=== PATIENT | female | born 2000 | race African-American/Black ===

== ENCOUNTER 2020-07-20 19:38 | Emergency (ER) | payer SELFPAY ==
[~2020-07-20] VITALS: Ht 172.7 cm; Wt 75.7 kg
[2020-07-20] MEDS ORDERED: diphenhydrAMINE 50 MG/ML VIAL IVP ONE (20:00)
--- NOTE | 2020-07-20 20:19 | PHYS DOC ---
General Adult EDM: Chief Complaint: SEIZURE HPI: HPI: Patient is a 20 year old female past medical history of seizures presents for evaluation after an apparent seizure. Patient states she has seizures monthly. States she had a seizure yesterday and since then has had tardive dyskinesia. Patient is alert and oriented x4. She is able to answer all my questions appropriately. She moves all extremities away actively and passively she has no focal weakness. Patient tongue is protruding she does have some slurred speech. She is in no respiratory distress she is able to handle her oral secretions. Patient states she has had tardive dyskinesia in the past related to seizures and states it usually resolves with Benadryl. Patient states she has not taken Benadryl since onset of her tardive dyskinesia. Review of Systems: Review of Systems: Constitutional: Denies fever or chills. [] Eyes: Denies change in visual acuity. [] HENT: Denies nasal congestion or sore throat. [] Respiratory: Denies cough or shortness of breath. [] Cardiovascular: Denies chest pain or edema. [] GI: Denies abdominal pain, nausea, vomiting, bloody stools or diarrhea. [] : Denies dysuria. [] Musculoskeletal: Denies back pain or joint pain. [] Integument: Denies rash. [] Neurologic: Denies headache, focal weakness or sensory changes. [Tongue jutting out and lip smacking] Endocrine: Denies polyuria or polydipsia. [] Lymphatic: Denies swollen glands. [] Psychiatric: Denies depression or anxiety. [] Heart Score: Risk Factors: Risk Factors: DM, Current or recent (<one month) smoker, HTN, HLP, family history of CAD, obesity. Risk Scores: Score 0 - 3: 2.5% MACE over next 6 weeks - Discharge Home Score 4 - 6: 20.3% MACE over next 6 weeks - Admit for Clinical Observation Score 7 - 10: 72.7% MACE over next 6 weeks - Early Invasive Strategies Current Medications: Current Medications Medications (Trade) Dose Ordered Sig/Julita Start Time Stop Time Status Last Admin Dose Admin Diphenhydramine HCl (Benadryl) 50 mg 1X ONCE 07/20/20 20:00 07/20/20 20:01 UNV Physical Exam: PE: Constitutional: Well developed, well nourished, no acute distress, non-toxic appearance. [] HENT: Normocephalic, atraumatic, bilateral external ears normal, oropharynx moist, no oral exudates, nose normal. [] Eyes: PERRLA, EOMI, conjunctiva normal, no discharge. [] Neck: Normal range of motion, no tenderness, supple, no stridor. [] Cardiovascular:Heart rate regular rhythm, no murmur [] Lungs & Thorax: Bilateral breath sounds clear to auscultation [] Abdomen: Bowel sounds normal, soft, no tenderness, no masses, no pulsatile masses. [] Skin: Warm, dry, no erythema, no rash. [] Back: No tenderness, no CVA tenderness. [] Extremities: No tenderness, no cyanosis, no clubbing, ROM intact, no edema. [] Neurologic: Alert and oriented X 3, normal motor function, normal sensory function, no focal deficits noted. [] Psychologic: Affect normal, judgement normal, mood normal. [] EKG: EKG: [] Radiology/Procedures: Radiology/Procedures: [] Course & Med Decision Making: Course & Med Decision Making Pertinent Labs and Imaging studies reviewed. (See chart for details) [] Patient with chronic history of seizures. She is alert and oriented x4. She has signs and symptoms consistent with tardive dyskinesia. Initial work-up will include a CBC CMP. Patient treatment included Benadryl. Reevaluation at 2100 hrs. Post Benadryl patient's tardive dyskinesia has resolved. Patient A/O x4 no focal neurological deficits labs reviewed no acute abnormalities patient will be discharged home. Gorge Disclaimer: Gorge Disclaimer: This electronic medical record was generated, in whole or in part, using a voice recognition dictation system. Departure Departure Impression: Primary Impression: Seizure Additional Impression: Tardive dyskinesia Disposition: 01 DC HOME SELF CARE/HOMELESS Condition: STABLE Patient Instructions: Seizure Disorder, Child, Generalized Tonic-Clonic, Tardive Dyskinesia JUAN GILL DO Jul 20, 2020 20:19
[2020-07-20 20:23] LABS: BASO % 0 % (0-3); EOS % 0 % (0-3); HEMATOCRIT 38.5 % (36.0-47.0); HEMOGLOBIN 12.6 g/dL (12.0-15.5); LYMPH # 3.1 x10^3/uL (1.0-4.8); LYMPH % 39 % (24-48); MEAN CORPUSCULAR HEMOGLOBIN 24 pg (25-35); MEAN CORPUSCULAR HGB CONC 33 g/dL (31-37); MEAN CORPUSCULAR VOLUME 73 fL (79-100); MONO # 0.7 x10^3/uL (0.0-1.1); MONO % 8 % (0-9); NEUT # 4.1 x10^3/uL (1.8-7.7); NEUT % 52 % (31-73); PLATELET COUNT 163 x10^3/uL (140-400); RED BLOOD COUNT 5.28 x10^6/uL (3.50-5.40); RED CELL DISTRIBUTION WIDTH 15.7 % (11.5-14.5)
[2020-07-20 20:32] LABS: CALCIUM 9.6 mg/dL (8.5-10.1); CREATININE 0.3 mg/dL (0.6-1.0); GFR 278.2; POTASSIUM 3.7 mmol/L (3.5-5.1)
[2020-07-20 20:38] LABS: ALBUMIN 3.5 g/dL (3.4-5.0); ALBUMIN/GLOBULIN RATIO 0.8 (1.0-1.7); TOTAL BILIRUBIN 0.2 mg/dL (0.2-1.0)
[2020-07-20 21:45] VITALS: BP 135/84
== END 2020-07-20 21:48 | disposition home or self-care (01) ==
LOC: ER 19:38
DX: G40.909 Epilepsy, unspecified, not intractable, without status epilepticus (principal); G24.01 Drug induced subacute dyskinesia
CPT/HCPCS: 36415; 80053; 85025; 96374; 99285; J1200; 93005